=== PATIENT | female | born 1935 | race Caucasian/White ===

== ENCOUNTER 2022-12-30 17:03 | Emergency (ER) | payer MEDICARE, MEDICAID ==
[~2022-12-30] VITALS: Ht 157.5 cm; Wt 65.9 kg
[2022-12-30] MEDS ORDERED: HTN MED PO (17:40)
[2022-12-31] MEDS ORDERED: ACETAMINOPHEN 325 MG TABLET PO ONE (07:30)
[2022-12-31 11:11] VITALS: BP 121/53
== END 2022-12-31 12:38 | disposition home or self-care (01) ==
LOC: EMS 17:09
DX: L76.22 Postprocedural hemorrhage of skin and subcutaneous tissue following other procedure (principal); I10 Essential (primary) hypertension; F03.90 Unspecified dementia, unspecified severity, without behavioral disturbance, psychotic disturbance, mood disturbance, and anxiety
CPT/HCPCS: 70450; 72125; 99285